=== PATIENT | female | born 1980 | race Caucasian/White ===

== ENCOUNTER 2024-02-04 18:42 | Emergency (ER) | payer SELFPAY ==
[2024-02-04 18:49] VITALS: BP 150/106
[2024-02-04 19:48] VITALS: BP 152/92
[2024-02-04 20:00] VITALS: BP 146/90
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
[2024-02-04 20:44] VITALS: BMI 38.5
[2024-02-04 20:45] LABS: HCG, Serum Qualitative Screen Negative
[2024-02-04 20:49] LABS: ALT (SGPT) 14 U/L (0-35); AST (SGOT) 21 U/L (14-36); Albumin 4.1 g/dl (3.5-5.0); Alkaline Phosphatase 96 U/L (38-126); Blood Urea Nitrogen 12 mg/dl (7-17); Calcium 9.3 mg/dl (8.4-10.2); Carbon Dioxide 22 mmol/L (22-30); Chloride 105 mmol/L (98-107); Estimated Creatinine Clearance > 125 ml/min; Glucose 109 mg/dl (70-99); Potassium 3.9 mmol/L (3.5-5.1); Sodium 142 mmol/L (135-145); Total Bilirubin 0.4 mg/dl (0.2-1.3); Total Protein 7.6 g/dl (6.3-8.2); eGFR > 60.00
[2024-02-04 20:51] LABS: % Basophils 0.5 % (0-2); % Eosinophils 1.3 % (0-6); % Immature Granulocytes 0.5 % (0-0.5); % Lymphocytes 32.6 % (20.5-51.1); % Monocytes 5.1 % (1.7-9.3); % Neutrophils 60.1 % (42.2-75.2); Absolute Basophils 0.1 10^3/uL (0-0.2); Absolute Eosinophils 0.1 10^3/uL (0-0.7); Absolute Immature Granulocytes 0.1 10^3/uL (0-0.05); Absolute Lymphocytes 3.3 10^3/uL (1.2-3.4); Absolute Monocytes 0.5 10^3/uL (0.1-0.6); Absolute Neutrophils 6.1 10^3/uL (1.4-6.5); Hematocrit 39.6 % (37.0-47.0); Hemoglobin 12.8 g/dL (12.0-16.0); Mean Corp Hgb Conc. 32.3 g/dL (33.0-37.0); Mean Corpuscular Volume 77.5 fL (81.0-99.0); Mean Platelet Volume 9.2 fL (7.4-10.4); Nucleated Red Blood Cells % 0 %; Platelet Count 339 10^3/uL (130-400); Red Blood Cell Count 5.07 10^6/uL (4.20-5.40); Red Cell Dist. Width 15.7 % (11.5-14.5); White Blood Cell Count 10.1 10^3/uL (4.8-10.8)
[2024-02-04 20:58] LABS: Troponin I < 0.012 ng/ml
[2024-02-04 21:00] VITALS: BP 149/93
[2024-02-04 21:55] VITALS: BP 147/88
[2024-02-04 22:00] VITALS: BP 141/84
== END 2024-02-04 22:15 | disposition home or self-care (01) ==
LOC: EMR 18:42
PROVIDERS: Physician Assistant; EMERGENCY PHYSICIAN Emergency Medicine; FAMILY PHYSICIAN Family Medicine
DX: R07.89 Other chest pain (principal); I10 Essential (primary) hypertension; F41.9 Anxiety disorder, unspecified; E03.9 Hypothyroidism, unspecified; F31.9 Bipolar disorder, unspecified; V43.52XA Car driver injured in collision with other type car in traffic accident, initial encounter; Y92.410 Unspecified street and highway as the place of occurrence of the external cause; Z83.3 Family history of diabetes mellitus
CPT/HCPCS: 99283; 71046; 80053; 84484; 84703; 85025; 93005

== ENCOUNTER 2024-11-09 23:16 | Emergency (ER) | payer OTHER, SELFPAY ==
[2024-11-09 23:21] VITALS: BP 134/88
[2024-11-09 23:47] LABS: Hematocrit 41.0 % (37.0-47.0); Hemoglobin 13.2 g/dL (12.0-16.0); Mean Corp Hgb Conc. 32.2 g/dL (33.0-37.0); Mean Corpuscular Volume 77.1 fL (81.0-99.0); Nucleated Red Blood Cells % 0 %; Platelet Count 381 10^3/uL (130-400); Red Cell Dist. Width 16.3 % (11.5-14.5)
[2024-11-10 00:02] LABS: ALT (SGPT) 14 U/L (0-35); AST (SGOT) 24 U/L (14-36); Albumin 4.2 g/dl (3.5-5.0); Alkaline Phosphatase 92 U/L (38-126); Blood Urea Nitrogen 11 mg/dl (7-17); Calcium 9.2 mg/dl (8.4-10.2); Carbon Dioxide 22 mmol/L (22-30); Chloride 107 mmol/L (98-107); Glucose 99 mg/dl (70-99); Potassium 4.5 mmol/L (3.5-5.1); Sodium 136 mmol/L (135-145); Total Protein 8.0 g/dl (6.3-8.2); eGFR > 60.00
[2024-11-10 02:10] VITALS: BP 128/83
[2024-11-10 02:19] VITALS: BMI 38.2
[2024-11-10 03:00] VITALS: BP 134/80
--- NOTE | 2024-11-10 03:57 | ED.GENMED ---
History of Present Illness
General
Chief Complaint: Abdominal Pain
Source: patient and family
Exam Limitations: none
Time Seen by Provider: 11/10/24 03:30
Nursing documentation reviewed up to this point in time: agreed with
History of Present Illness
History of Present Illness:
Note:
CHIEF COMPLAINT(S)
Abdominal pain and gastrointestinal symptoms.
HISTORY OF PRESENT ILLNESS
The patient is a 44-year-old female who presents with abdominal pain and gastrointestinal symptoms. The symptoms began on Wednesday night, approximately one to two hours after eating when she started experiencing vomiting. She managed to work for half
a day but subsequently stayed home due to worsening symptoms. Early this morning, she developed very watery diarrhea. The pain is described as localized to the right side of the abdomen, extending from the center lower down. She denies having a
fever, though she occasionally feels nauseated, and she reports no recent vomiting after eating again, with the exception of an episode following an increase in abdominal discomfort after speaking with her doctor. The patient described an exercise
performed at home under her doctor�s guidance, involving pressing on her side and performing jumping movements, which intensified the discomfort, leading to another episode of vomiting shortly thereafter. There is no history of abdominal surgeries.
The pain typically begins two to three hours postprandially, and the patient has consumed little besides an icy Coke since the last substantial meal. Her last menstrual period was in September, and she denies and recent sexual activity. She has
also mentioned using Mirena control.
EXTERNAL RECORDS REVIEWED
The patients previous interactions with her doctors office involved remote guidance due to after-hours, including pressing on the abdomen and jumping to assess discomfort, leading to a recommendation to seek evaluation from primary care.
PHYSICAL EXAM
General: Alert, no acute distress.
Skin: Warm, dry.
Head: Normocephalic, atraumatic.
Neck: Supple, trachea midline.
Eye, Ears, Nose, Mouth, and Throat: Oral mucosa moist.
Cardiovascular: Normal peripheral perfusion, no edema.
Respiratory: Respirations are non-labored.
Gastrointestinal: Abdomen nondistended with discomfort localized to the right lower quadrant.
Back: Normal range of motion, normal alignment.
Musculoskeletal: Normal range of motion, normal strength.
Neurological: Alert and oriented to person, place, time, and situation, no focal neurological deficit observed.
Psychiatric: Cooperative, appropriate mood & affect.
PLAN
The plan includes ordering a computed tomography (CT) scan to investigate potential causes of the abdominal pain, such as appendicitis, gallbladder pathology, kidney stones, or constipation. Additional orders for blood work and potential placement
of an intravenous line are considered.
DIFFERENTIAL DIAGNOSIS
The Differential Diagnosis includes, in no particular order and is not limited to:
1. Appendicitis
2. Cholecystitis
3. Nephrolithiasis (kidney stones)
4. Gastroenteritis
5. Peptic ulcer disease
6. Inflammatory bowel disease
7. Constipation
8. Pancreatitis
9. Ectopic
10. Diverticulitis
CARE-UPDATE
11/10/24 - 07:[address] scan results are negative, except for indications of splenomegaly. A Monospot test has been ordered to further evaluate for infectious mononucleosis.
Disposition:
SUMMARY OF ENCOUNTER
The patient is a 44-year-old female who presented with right-sided abdominal pain and gastrointestinal symptoms. A CT scan was performed, which revealed splenomegaly. Given these results and the clinical findings, a decision was made to discharge
the patient with a follow-up appointment.
DISPOSITION
Discharge.
PLAN
Discharge the patient with instructions to follow up with a telephone services sales representative for further evaluation and management of splenomegaly.
INDEPENDENT REVIEW OF LABS AND INTERPRETATION OF TESTS
CT scan interpretation from [facility] shows hepatosplenomegaly.
PATIENT EDUCATION AND COUNSELING
The patient was informed about the CT scan findings and the importance of following up with a telephone services sales representative for further assessment and management of her condition.
FOLLOW-UP INSTRUCTIONS
The patient is instructed to follow up with a telephone services sales representative promptly. Coordination with the GI office was done to ensure an appointment is scheduled.
MEDICATION RECONCILIATION
No medication changes or prescriptions were noted during this encounter.
MEDICAL DECISION MAKING
- Number and Complexity of Problems Addressed:
Chronic conditions affecting care include symptoms such as abdominal pain and gastrointestinal issues. Differential diagnoses considered are appendicitis, cholecystitis, nephrolithiasis, gastroenteritis, peptic ulcer disease, inflammatory bowel
disease, constipation, pancreatitis, ectopic , and diverticulitis.
- Data:
Category 1: Tests and documents
Independent interpretation of CT scan revealed splenomegaly.
- Risk:
Consideration of Admission/Observation: Escalation of care including admission/observation was considered given the complexity and risk of the patients presenting complaint and splenomegaly. However, ultimately, the patient is deemed safe for
outpatient management with close follow-up because the work-up does not reveal any acute life/organ-threatening processes, symptoms are well-controlled, vitals are stable, and the patient is reliable for follow-up.
DIAGNOSIS
1. Splenomegaly - ICD-10 Code: R16.1
Past History
Past History
ED Past Medical History: Hypothyroidism, Psychiatric (Bipolar disorder) and Other (Migraine headaches)
ED Past Surgical History: Other ([place] tooth extraction)
Social History
Tobacco: Non-smoker
Alcohol: Occasional
Drug: None
Personal:
Living: with family
Employment: Employed
Family History
Family History: Diabetes and Other (No history of mental illness); Negative Early CAD
Course
Orders/Labs/Results
Orders:
Orders
11/09/24 23:35
CMP [Comprehensive Metabolic Panel] Urgent
Complete Blood Count/With Diff Urgent
HCG, Serum Qualitative Screen Urgent
Comment: ADD ON
Monotest Urgent
Comment: ADD ON
11/10/24 03:35
Morphine Sulfate 4 mg IV NOW STA
Ondansetron Injectable [Zofran] 4 mg IV NOW STA
11/10/24 03:57
CT Abd/pelvis W Iv Cont Urgent
Comment:
Reason For Exam: RLQ abd pain
0.9% Sodium Chloride 1000 ml [Nss] 1,000 ml IV BOLUS
11/10/24 04:20
Test Result ONCE
11/10/24 04:52
Add On- LAB Urgent
Tests Added?: HCG qualitative serum
11/10/24 07:03
Add On- LAB Urgent
Tests Added?: monospot
Abnormal Lab Results
11/09/24
23:35
MCV 77.1 L fL
(81.0-99.0)
MCH 24.8 L pg
(27.0-31.0)
MCHC 32.2 L g/dL
(33.0-37.0)
RDW 16.3 H %
(11.5-14.5)
Abs Immat Gran (auto) 0.1 H 10^3/uL
(0-0.05)
Absolute Lymphs (auto) 3.9 H 10^3/uL
(1.2-3.4)
11/09/24 23:35
11/09/24 23:35
Vital Signs
Initial and Last Documented VS:
Initial Vital Signs
Temp Pulse Resp BP Pulse Ox
98.1 F 72 18 134/88 97
11/09/24 23:21 11/09/24 23:21 11/09/24 23:21 11/09/24 23:21 11/09/24 23:21
Last Documented Vital Signs
Temp Pulse Resp BP Pulse Ox
97.9 F 64 18 126/76 98
11/10/24 02:21 11/10/24 05:30 11/10/24 05:30 11/10/24 05:00 11/10/24 05:30
*Pulse Oximetry
SaO2: 99
Oxygen Mode of Delivery: Room air
Update Note
Update Note:
NAME: CODYLUZMA Christopher
DATE OF EXAM: 11/10/2024
Patient No: [id number]
Physician: KURT^Caitlyn
Date of : 1980
Past Medical History (entered by Technologist):
Reason For Exam (entered by Technologist):
Other Notes (entered by Technologist): rt sided pain, rt sided flank pain, nausea, diarrhea
priors
Additional Information (per [facility]):
CT abdomen and pelvis with IV contrast
IMPRESSION:
Appendix is normal. No cholecystitis, pancreatitis, or obstructing renal stone.
Hepatosplenomegaly and hepatic steatosis. Adrenal glands normal. Abdominal aorta is of normal caliber. Scattered lymph nodes are likely reactive.
Finalized at 7 AM EST
Chino Mondragon M.D.
This report has been electronically signed and verified by the Radiologist whose name is printed above.
ED Attending Note
-
Portions of this chart may have been created with voice recognition software.� Occasional wrong word or��sound alike� substitutions may have occurred due to the inherent limitations of voice recognition software.
Discharge Plan
Departure
Patient Disposition: Home (Routine Discharge)
Date of Disposition: 11/10/24
Time of Disposition: 07:36
Patient with high blood pressure during this ER visit?: Yes
Discharge Problem:
Abdominal pain, Hepatosplenomegaly
Instructions: Abdominal Pain, BLOOD PRESSURE
Prescriptions:
No Action
sumatriptan succinate [Imitrex] 100 MG tablet
100 mg PO PRN PRN (Reason: migraines)
naratriptan [Amerge] 2.5 MG tablet
2.5 mg PO PRN PRN (Reason: menstrual migraines)
Patient Comments:
monthly during her menses
Aimovig Autoinjector 140 MG/ML auto-injector
140 mg SQ MONTHLY
omeprazole 20 MG capsule,delayed release(DR/EC)
20 mg PO DAILY
sertraline [Zoloft] 100 mg Tablet
100 mg PO DAILY
Ubrelvy 100 mg Tablet
100 mg PO PRN PRN (Reason: migraines)
levothyroxine 100 mcg tablet
100 mcg PO DAILY@0700
Botox 200 unit Recon Soln
10 unit IM . DIRECTED
pseudoephedrine-ibuprofen 30-200 mg Tablet
2 tab PO .ONCE NEEDED PRN (Reason: migraine)
diphenhydramine HCl 50 mg Capsule
50 mg PO .ONCE NEEDED PRN (Reason: migraine)
naproxen sodium 220 mg Tablet
440 mg PO .ONCE NEEDED PRN (Reason: migraine)
Referrals:
Mason Spear MD [Active, Gastroenterology]
Joan Natarajan DO [Family Provider, Family Practice]
Activity Restrictions/Additional Instructions:
Thank You for choosing [facility].
It was a pleasure meeting you and taking part in your care. We hope for your continued healing and wellness.
Please read discharge instructions in their entirety. However, they are for general education and may not describe your exact diagnosis at discharge. Information on your ER visit and medical conditions were discussed with you along with appropriate
follow up information...
If indicated, please take your medications as instructed and indicated on discharge paperwork.
Please schedule a follow up appointment as directed. Call to schedule an appointment
Please return to the emergency department with ANY change in, persisting, or worsening of symptoms. If any of your symptoms do not improve, or persist, or become more severe within 6-12 hours, please return to the emergency department for further
care.
Please return to the emergency department if you develop a headache, neck pain/stiffness, fever greater than 100.4F, chest pain, shortness of breath, persistent nausea, vomiting, slurred speech, difficulty walking, numbness/tingling, weakness, signs
of infection or any other symptoms that are worrisome to you.
If you have any questions or concerns please do not hesitate to call the Hospital at or E-mail me directly at [email or web address]
Interventions
Interventions:
*Risk Screen - Suicide Last Done: 11/09/24 23:18
*General Assessment Last Done: 11/09/24 23:18
*Neglect/Abuse Screening Last Done: 11/09/24 23:18
*ED- Fall Risk Assessment Last Done: 11/10/24 02:09
*ED COVID-19 Vaccine History Last Done: 11/09/24 23:18
PB-Fdrqip-Jempchkpsj Assessment Last Done: 11/10/24 02:19
Discharge Date and Time
Print Language: IRAQI
[2024-11-10 04:00] VITALS: BP 114/92
[2024-11-10] MEDS: NSS 1000 IV (04:08)
[2024-11-10] MEDS: ZOFRAN 4 MG IV (04:09)
[2024-11-10] MEDS: MORPHINE SULFATE 4 MG IV (04:09)
[2024-11-10 05:00] VITALS: BP 126/76
[2024-11-10 05:31] LABS: HCG, Serum Qualitative Screen Negative
[2024-11-10 06:15] VITALS: BP 129/77
[2024-11-10 07:00] VITALS: BP 123/79
[2024-11-10 08:16] LABS: Urine Character Clear (Clear)
[2024-11-10 08:28] LABS: Urine Squamous Cell >30 /LPF (Few)
== END 2024-11-10 09:17 | disposition home or self-care (01) ==
LOC: EMR 23:16
PROVIDERS: EMERGENCY PHYSICIAN Student in an Organized Health Care Education/Training Program; FAMILY PHYSICIAN Family Medicine
DX: R16.1 Splenomegaly, not elsewhere classified (principal); K76.0 Fatty (change of) liver, not elsewhere classified; R03.0 Elevated blood-pressure reading, without diagnosis of hypertension; E03.9 Hypothyroidism, unspecified; F31.9 Bipolar disorder, unspecified; G43.909 Migraine, unspecified, not intractable, without status migrainosus
CPT/HCPCS: 99284; 96374; 96375; 96361; 74177; 80053; 81003; 81015; 84703; 85025; 86308; 87086; Q9967

== ENCOUNTER 2024-11-16 10:00 | Emergency (ER) | payer OTHER, SELFPAY ==
[2024-11-16] VITALS (8 sets, daily range): BP systolic 105–140; BP diastolic 60–93; BMI 37.2
--- NOTE | 2024-11-16 11:03 | ED.GENMED ---
History of Present Illness
General
Chief Complaint: Abdominal Pain
Source: patient
Exam Limitations: none
Time Seen by Provider: 11/16/24 11:03
Nursing documentation reviewed up to this point in time: agreed with
History of Present Illness
History of Present Illness:
44-year-old female with past medical history of hypothyroidism, migraine presents to the ER for evaluation. Patient reports she was seen here November 10 for abdominal pain nausea vomiting diarrhea and has present symptoms again. She had a full
workup here in the ER including CAT scan. CAT scan at that time did show hepatosplenomegaly and patient also apparently tested positive for mono .
patient reports her stools seem to improve however last night she started again with liquid diarrhea and continues to have pain. She complains of pain to the right side of her abdomen. She is nauseous and dry heaving. She denies any back pain.
Denies any urinary frequency urgency. Denies any vaginal bleeding. She has an appointment with GI here at [place] on Wednesday in 5 days.
Past History
Past History
ED Past Medical History: Hypothyroidism, Psychiatric (Bipolar disorder) and Other (Migraine headaches)
ED Past Surgical History: Other ([place] tooth extraction)
Social History
Tobacco: Non-smoker
Alcohol: Occasional
Drug: None
Personal:
Living: with family
Employment: Employed
Family History
Family History: Diabetes and Other (No history of mental illness); Negative Early CAD
Phy Exam
General Physical Exam
General Presentation: no apparent distress
General age: appears stated age
General Skin: warm and dry
General Habitus: obese
General Mental: alert
General Hydration: appears well hydrated
Cardiovascular Exam
Cardiovascular Exam: regular rate/rhythm, no murmur and normal peripheral pulses
Pulmonary Exam
Pulmonary Exam: lungs clear and no respiratory distress
Gastrointestinal Exam
Gastrointestinal Exam: soft and other (Tender throughout the right abdomen no guarding rebound)
Neurological Exam
Neurological Exam: alert and oriented x3
Musculoskeletal Exam
Musculoskeletal Exam: full ROM
Skin Exam
Skin Exam: normal color and warm/dry
Psychiatric Exam
Psychiatric Exam: normal mood/affect
Course
Orders/Labs/Results
Orders:
Orders
11/16/24 11:14
IV Insert/Care/Rem.- Treatment PRN
0.9% Sodium Chloride 1000 ml [Nss] 1,000 ml IV BOLUS
Ketorolac [Toradol] 15 mg IV NOW STA
Ondansetron Injectable [Zofran] 4 mg IV NOW STA
11/16/24 11:15
US Abdomen Complete/Upper Urgent
Comment:
Reason For Exam: right upper abd pain
11/16/24 11:53
Complete Blood Count/With Diff Routine
11/16/24 12:49
Comprehensive Metabolic Panel Urgent
HCG, Serum Qualitative Screen Urgent
Comment: HCG QUALITARIVE ADDED ON BY FLOOR 2:15PM 11-16-24
Lipase Urgent
11/16/24 14:17
Add On- LAB Urgent
Tests Added?: hcg qualitative
11/16/24 14:26
US Pelvis Only (non-obstetric) Urgent
Comment:
Reason For Exam: rlq pain
11/16/24 14:27
0.9% Sodium Chloride 1000 ml [Nss] 1,000 ml IV BOLUS
11/16/24 17:42
Urinalysis Reflex To Culture Urgent
Date Specimen was Collected: 11/16/24
Time Specimen was Collected: 17:41
Urine Microscopic Reflex Cult Urgent
Urine Culture Urgent
JERED Source: U
Specimen Description:
Date Specimen was Collected: 11/16/24
Time Specimen was Collected: 17:41
11/16/24 17:50
Ketorolac [Toradol] 15 mg .ROUTE .[facility]
11/16/24 18:11
Ketorolac [Toradol] 15 mg IV NOW STA
11/16/24 18:15
CT Abd/pelvis W Iv Cont Urgent
Comment:
Reason For Exam: right sided abd pain
Abnormal Lab Results
11/16/24 11/16/24 11/16/24
11:53 12:49 17:42
WBC 11.8 H 10^3/uL
(4.8-10.8)
MCV 76.0 L fL
(81.0-99.0)
MCH 25.0 L pg
(27.0-31.0)
MCHC 32.8 L g/dL
(33.0-37.0)
RDW 16.1 H %
(11.5-14.5)
Abs Immat Gran (auto) 0.1 H 10^3/uL
(0-0.05)
Absolute Neuts (auto) 7.7 H 10^3/uL
(1.4-6.5)
Chloride 111 H mmol/L
(98-107)
Carbon Dioxide 18 L mmol/L
(22-30)
Urine Bacteria (Reflex) Moderate A
(Negative)
Urine Albumin (Reflex) 1+ A
(Neg - Trace)
11/16/24 11:53
11/16/24 12:49
Vital Signs
Initial and Last Documented VS:
Initial Vital Signs
Temp Pulse Resp BP Pulse Ox
98.3 F 75 16 140/93 97
11/16/24 10:06 11/16/24 10:06 11/16/24 10:06 11/16/24 10:06 11/16/24 10:06
Last Documented Vital Signs
Temp Pulse Resp BP Pulse Ox
97.6 F 77 16 128/70 97
11/16/24 11:25 11/16/24 11:25 11/16/24 10:06 11/16/24 16:00 11/16/24 16:15
MDM/Problems Addressed
Differential Diagnosis Includes:
Not limited to gastritis, gallbladder disease, less likely appendicitis
MDM/Problems Addressed:
No clear cause for patient's pain. Symptoms have been since November 10. Patient was seen and worked up here in the ER at that time. Patient had a CAT scan done during that visit and has had intermittent abdominal pain and diarrhea since. She
denies any fevers. Ultrasound done today negative for acute abnormalities normal appearance of the gallbladder no bile duct dilatation unremarkable pelvic ultrasound.
With minimally elevated white count (was normal during last ER visit )repeat CAT scan was done and unremarkable. Patient has had no vomiting or diarrhea here in the ER.
Patient has an appointment with GI next week will alternate with Tylenol and ibuprofen and encourage patient to follow-up as scheduled.
*Radiology
Radiology exam reviewed: radiology read reviewed
*Pulse Oximetry
SaO2: 97
Oxygen Mode of Delivery: Room air
Patient hypoxic: no
*Critical Care Note
Total Time (30-74mins, 75-104mins- exclusive of procedures): Not Applicable
Data Reviewed
Review of Other/Old Records Reveals: Labs, Radiology Studies and Other
ED Attending Note
-
Portions of this chart may have been created with voice recognition software.� Occasional wrong word or��sound alike� substitutions may have occurred due to the inherent limitations of voice recognition software.
Discharge Plan
Departure
Patient Disposition: Home (Routine Discharge)
Date of Disposition: 11/16/24
Time of Disposition: 19:10
Patient with high blood pressure during this ER visit?: Yes
Condition: Fair
Covid-19: Not Applicable
Discharge Problem:
Abdominal pain
Instructions: Abdominal Pain, BLOOD PRESSURE
Prescriptions:
No Action
sumatriptan succinate [Imitrex] 100 MG tablet
100 mg PO PRN PRN (Reason: migraines)
naratriptan [Amerge] 2.5 MG tablet
2.5 mg PO PRN PRN (Reason: menstrual migraines)
Patient Comments:
monthly during her menses
Aimovig Autoinjector 140 MG/ML auto-injector
140 mg SQ MONTHLY
omeprazole 20 MG capsule,delayed release(DR/EC)
20 mg PO DAILY
sertraline [Zoloft] 100 mg Tablet
100 mg PO DAILY
Ubrelvy 100 mg Tablet
100 mg PO PRN PRN (Reason: migraines)
levothyroxine 100 mcg tablet
100 mcg PO DAILY@0700
Botox 200 unit Recon Soln
10 unit IM . DIRECTED
pseudoephedrine-ibuprofen 30-200 mg Tablet
2 tab PO .ONCE NEEDED PRN (Reason: migraine)
diphenhydramine HCl 50 mg Capsule
50 mg PO .ONCE NEEDED PRN (Reason: migraine)
naproxen sodium 220 mg Tablet
440 mg PO .ONCE NEEDED PRN (Reason: migraine)
Referrals:
Taiwo Arango MD [Active, Gastroenterology]
Joan Natarajan DO [Family Provider, Family Practice]
Stand Alone Forms: Return to Work
Activity Restrictions/Additional Instructions:
Repeat CAT scan was done as well as ultrasound and there is no acute cause of your abdominal pain. Your urinalysis was negative for infection. Your white count was minimally elevated .
you may alternate between Tylenol and ibuprofen. Please follow-up with GI as scheduled next week. Return if any worsening of symptoms
Interventions
Interventions:
*Risk Screen - Suicide Last Done: 11/16/24 10:07
*General Assessment Last Done: 11/16/24 11:22
*Neglect/Abuse Screening Last Done: 11/16/24 10:07
*ED- Fall Risk Assessment Last Done: 11/16/24 11:22
*ED COVID-19 Vaccine History Last Done: 11/16/24 11:22
DL-Lcpckz-Smtwtohaed Assessment Last Done: 11/16/24 11:22
Discharge Date and Time
Print Language: FRISIAN
[2024-11-16] MEDS: TORADOL 15 MG IV ×2 (11:52→18:13)
[2024-11-16] MEDS: ZOFRAN 4 MG IV (11:52)
[2024-11-16 12:02] LABS: Hematocrit 39.0 % (37.0-47.0); Hemoglobin 12.8 g/dL (12.0-16.0); Mean Corp Hgb Conc. 32.8 g/dL (33.0-37.0); Mean Corpuscular Volume 76.0 fL (81.0-99.0); Nucleated Red Blood Cells % 0 %; Platelet Count 375 10^3/uL (130-400); Red Cell Dist. Width 16.1 % (11.5-14.5)
[2024-11-16] MEDS: NSS 1000 IV ×2 (12:47→14:36)
[2024-11-16 13:25] LABS: ALT (SGPT) 14 U/L (0-35); AST (SGOT) 23 U/L (14-36); Albumin 3.8 g/dl (3.5-5.0); Alkaline Phosphatase 90 U/L (38-126); Blood Urea Nitrogen 13 mg/dl (7-17); Calcium 9.1 mg/dl (8.4-10.2); Carbon Dioxide 18 mmol/L (22-30); Chloride 111 mmol/L (98-107); Estimated Creatinine Clearance > 125 ml/min; Glucose 96 mg/dl (70-99); Lipase 46 U/L (23-300); Potassium 4.3 mmol/L (3.5-5.1); Sodium 137 mmol/L (135-145); Total Protein 7.3 g/dl (6.3-8.2); eGFR > 60.00
[2024-11-16 14:44] LABS: HCG, Serum Qualitative Screen Negative
[2024-11-16 17:54] LABS: Urine Character Clear (Clear)
[2024-11-16 18:32] LABS: Urine Red Blood Cell 0-2 /HPF (0-2); Urine Squamous Cell 16-20 /LPF (Few)
== END 2024-11-16 19:40 | disposition home or self-care (01) ==
LOC: EMR 10:00
PROVIDERS: Nurse Practitioner; EMERGENCY PHYSICIAN Emergency Medicine; FAMILY PHYSICIAN Family Medicine
DX: R10.9 Unspecified abdominal pain (principal); R11.2 Nausea with vomiting, unspecified; R19.7 Diarrhea, unspecified; E03.9 Hypothyroidism, unspecified
CPT/HCPCS: 96374; 96375; 96376; 96361; 99284; 74177; 76700; 76856; 80053; 81003; 81015; 83690; 84703; 85025; 87086; Q9967

== ENCOUNTER 2024-11-23 06:27 | Day surgery (SDC) | payer OTHER, SELFPAY | END 2024-11-23 13:04 | disposition home or self-care (01) | LOC: GI 06:27 | PROVIDERS: ATTENDING PHYSICIAN Internal Medicine Gastroenterology | DX: R12 Heartburn (principal); R10.11 Right upper quadrant pain; R11.2 Nausea with vomiting, unspecified; K31.7 Polyp of stomach and duodenum | CPT/HCPCS: 43239; 88305 ==

== ENCOUNTER 2025-02-14 07:53 | Emergency (ER) | payer OTHER, SELFPAY ==
[2025-02-14 07:55] VITALS: BP 126/87
[2025-02-14 08:06] VITALS: BMI 37.4
--- NOTE | 2025-02-14 08:18 | ED.GENMED ---
History of Present Illness
General
Chief Complaint: Headache
Source: patient
Time Seen by Provider: 02/14/25 08:07
History of Present Illness
History of Present Illness:
44-year-old female presents emergency room complaining of a migraine headache. Patient has a history of chronic migraines. She has been taking Naprosyn and Ubrelvy at home. She has taken the maximum amount of medication. It has helped take some
of the discomfort away but she continues to have up bifrontal pressure, nausea and light sensitivity. No actual vomiting. No focal weakness numbness or tingling. Patient states this headache is similar to previous migraines. No recent trauma.
Past History
Past History
ED Past Medical History: Hypothyroidism, Psychiatric (Bipolar disorder) and Other (Migraine headaches)
ED Past Surgical History: Other ([place] tooth extraction)
Social History
Tobacco: Non-smoker
Alcohol: Occasional
Drug: None
Personal:
Living: with family
Employment: Employed
Family History
Family History: Diabetes and Other (No history of mental illness); Negative Early CAD
Phy Exam
Physical Exam
Physical Exam:
General: Awake, Alert, Oriented X3. No acute distress.
Vitals: unremarkable
Head: Atraumatic
Eyes: Pupils equal, EOMI
Throat: Airway intact, no exudates
Neck: Trachea midline
Lungs: Clear and equal b/l
Heart: Regular rate, no murmurs
Neuro: Cranial nerves intact, muscle strength equal bilaterally, cerebellar exam normal
Skin: Warm, dry, no rash
Extremities: pulses equal b/l, no edema
Course
Orders/Labs/Results
Orders:
Orders
02/14/25 08:16
0.9% Sodium Chloride 1000 ml [Nss] 1,000 ml IV BOLUS
Diphenhydramine [Benadryl] 25 mg IV NOW STA
Ketorolac [Toradol] 15 mg IV NOW STA
Metoclopramide [Reglan] 10 mg IV NOW STA
Vital Signs
Initial and Last Documented VS:
Initial Vital Signs
Temp Pulse Resp BP Pulse Ox
98.2 F 75 18 126/87 95
02/14/25 07:55 02/14/25 07:55 02/14/25 07:55 02/14/25 07:55 02/14/25 07:55
Last Documented Vital Signs
Temp Pulse Resp BP Pulse Ox
98.2 F 69 15 124/92 99
02/14/25 07:55 02/14/25 08:07 02/14/25 08:07 02/14/25 09:00 02/14/25 09:45
MDM/Problems Addressed
Differential Diagnosis Includes:
Intractable migraine, tension headache, dehydration
MDM/Problems Addressed:
Patient presents complaining of migraine headache that is not relieved with home treatment. Nonfocal neurologic exam. Patient treated with Reglan, Benadryl and Toradol. Significant relief of her symptoms. Stable for discharge home.
*Pulse Oximetry
SaO2: 100
Oxygen Mode of Delivery: Room air
Patient hypoxic: no
*Critical Care Note
Total Time (30-74mins, 75-104mins- exclusive of procedures): Not Applicable
ED Attending Note
-
Portions of this chart may have been created with voice recognition software.� Occasional wrong word or��sound alike� substitutions may have occurred due to the inherent limitations of voice recognition software.
Discharge Plan
Departure
Patient Disposition: Home (Routine Discharge)
Date of Disposition: 02/14/25
Time of Disposition: 09:56
Patient with high blood pressure during this ER visit?: No
Condition: Good
Discharge Problem:
Intractable migraine
Instructions: Migraines (DC)
Prescriptions:
No Action
sumatriptan succinate [Imitrex] 100 MG tablet
100 mg PO PRN PRN (Reason: migraines)
naratriptan [Amerge] 2.5 MG tablet
2.5 mg PO PRN PRN (Reason: menstrual migraines)
Patient Comments:
monthly during her menses
Aimovig Autoinjector 140 MG/ML auto-injector
140 mg SQ MONTHLY
omeprazole 20 MG capsule,delayed release(DR/EC)
20 mg PO DAILY
sertraline [Zoloft] 100 mg Tablet
100 mg PO DAILY
Ubrelvy 100 mg Tablet
100 mg PO PRN PRN (Reason: migraines)
levothyroxine 100 mcg tablet
100 mcg PO DAILY@0700
Botox 200 unit Recon Soln
10 unit IM . DIRECTED
pseudoephedrine-ibuprofen 30-200 mg Tablet
2 tab PO .ONCE NEEDED PRN (Reason: migraine)
diphenhydramine HCl 50 mg Capsule
50 mg PO .ONCE NEEDED PRN (Reason: migraine)
naproxen sodium 220 mg Tablet
440 mg PO .ONCE NEEDED PRN (Reason: migraine)
Referrals:
Joan Natarajan, [Family Provider, Family Practice]
Interventions
Interventions:
*Risk Screen - Suicide Last Done: 02/14/25 07:55
*General Assessment Last Done: 02/14/25 07:55
*Neglect/Abuse Screening Last Done: 02/14/25 07:55
*ED- Fall Risk Assessment Last Done: 02/14/25 08:08
*ED COVID-19 Vaccine History Last Done: 02/14/25 08:08
*ED Influenza Vaccine History Last Done: 02/14/25 08:08
*Nursing Disposition Last Done: 02/14/25 10:04
ED- Neurological Assessment Last Done: 02/14/25 08:09
Discharge Date and Time
Discharge Date/Time: 02/14/25 10:05
Print Language: LAO
[2025-02-14 08:20] VITALS: BP 133/79
[2025-02-14] MEDS: TORADOL 15 MG IV (08:42)
[2025-02-14] MEDS: REGLAN 10 MG IV (08:42)
[2025-02-14] MEDS: BENADRYL 25 MG IV (08:42)
[2025-02-14] MEDS: NSS 1000 IV (08:43)
[2025-02-14 09:00] VITALS: BP 124/92
== END 2025-02-14 10:05 | disposition home or self-care (01) ==
LOC: EMR 07:53
PROVIDERS: EMERGENCY PHYSICIAN Emergency Medicine; FAMILY PHYSICIAN Family Medicine
DX: G43.919 Migraine, unspecified, intractable, without status migrainosus (principal); E03.9 Hypothyroidism, unspecified
CPT/HCPCS: 96374; 96375; 99284